=== PATIENT | male | born 1935 | race Caucasian/White ===

== ENCOUNTER 2017-07-02 14:43 | Outpatient (RCR) | payer MEDICARE, SELFPAY ==
[2017-07-02 14:56] LABS: Prothrombin Time Fingerstick 32.7 SEC (11.9-14.4)
== END 2017-07-02 15:00 | disposition home or self-care (01) ==
LOC: LAB 14:43
PROVIDERS: Family Provider Family Medicine; PCP Family Medicine; Visit Provider Internal Medicine Cardiovascular Disease
DX: I25.810 Atherosclerosis of coronary artery bypass graft(s) without angina pectoris (principal); I35.0 Nonrheumatic aortic (valve) stenosis; Z79.899 Other long term (current) drug therapy
CPT/HCPCS: 36416; 85610

== ENCOUNTER 2017-08-05 16:00 | Outpatient (RCR) | payer MEDICARE, SELFPAY ==
[2017-08-05 16:26] LABS: Prothrombin Time Fingerstick 23.6 SEC (11.9-14.4)
== END 2017-08-05 17:00 ==
LOC: LAB 16:00
PROVIDERS: Family Provider Family Medicine; PCP Family Medicine; Visit Provider Internal Medicine Cardiovascular Disease
DX: I42.9 Cardiomyopathy, unspecified (principal); Z79.01 Long term (current) use of anticoagulants
CPT/HCPCS: 36416; 85610

== ENCOUNTER 2017-09-02 14:56 | Outpatient (RCR) | payer MEDICARE, SELFPAY | END 2017-09-02 15:00 | disposition home or self-care (01) | LOC: LAB 14:56 | PROVIDERS: Family Provider Family Medicine; PCP Family Medicine; Visit Provider Internal Medicine Cardiovascular Disease | DX: I42.9 Cardiomyopathy, unspecified (principal); Z79.01 Long term (current) use of anticoagulants | CPT/HCPCS: 36416; 85610 ==

== ENCOUNTER 2017-09-30 14:38 | Outpatient (RCR) | payer MEDICARE, SELFPAY ==
[2017-09-30 14:56] LABS: Prothrombin Time Fingerstick 28.1 SEC (11.9-14.4)
== END 2017-09-30 15:00 | disposition home or self-care (01) ==
LOC: LAB 14:38
PROVIDERS: Family Provider Family Medicine; PCP Family Medicine; Visit Provider Internal Medicine Cardiovascular Disease
DX: I21.29 ST elevation (STEMI) myocardial infarction involving other sites (principal); Z79.01 Long term (current) use of anticoagulants
CPT/HCPCS: 36416; 85610

== ENCOUNTER 2017-10-29 08:04 | Outpatient (RCR) | payer MEDICARE, SELFPAY ==
[2017-10-29 09:16] LABS: AST(SGOT) 29 U/L (15-37); Alanine Aminotransfer ALT/SGPT 27 U/L (16-61); Albumin, Serum 3.5 g/dL (3.2-5.0); Alkaline Phosphatase 82 U/L (45-117); Cholesterol 146 mg/dL (200); Globulin 3.9 g/dL (2.2-4.2); High Density Lipoprotein 65 mg/dL; Protein, Total 7.4 g/dL (6.4-8.2); Triglycerides 114 mg/dL; Very Low Density Lipoprotein 23 mg/dL (5-40)
[2017-10-29 09:24] LABS: International Normalized Ratio 2.2; Prothrombin Time (Protime)PT. 24.9 SECONDS (11.7-14.9)
== END 2017-10-29 09:00 ==
LOC: LAB 08:04
PROVIDERS: Family Provider Family Medicine; PCP Family Medicine; Visit Provider Internal Medicine Cardiovascular Disease
DX: I42.9 Cardiomyopathy, unspecified (principal); I35.0 Nonrheumatic aortic (valve) stenosis; Z95.1 Presence of aortocoronary bypass graft; E78.5 Hyperlipidemia, unspecified; I10 Essential (primary) hypertension; Z79.01 Long term (current) use of anticoagulants; Z79.899 Other long term (current) drug therapy
CPT/HCPCS: 36415; 80061; 80076; 85610

== ENCOUNTER 2017-11-29 15:28 | Outpatient (RCR) | payer MEDICARE, SELFPAY ==
[2017-11-29 15:51] LABS: Prothrombin Time Fingerstick 18.4 SEC (11.9-14.4)
== END 2017-11-29 16:00 | disposition home or self-care (01) ==
LOC: LAB 15:28
PROVIDERS: Family Provider Family Medicine; PCP Family Medicine; Visit Provider Internal Medicine Cardiovascular Disease
DX: I42.9 Cardiomyopathy, unspecified (principal); Z79.01 Long term (current) use of anticoagulants
CPT/HCPCS: 36416; 85610

== ENCOUNTER 2018-01-27 15:24 | Outpatient (RCR) | payer MEDICARE, SELFPAY ==
[2018-01-06 15:46] LABS: Prothrombin Time Fingerstick 35.5 SEC (11.9-14.4)
== END 2018-01-27 17:00 | disposition home or self-care (01) ==
LOC: LAB 15:24
PROVIDERS: Family Provider Family Medicine; PCP Family Medicine; Visit Provider Internal Medicine Cardiovascular Disease
DX: I42.9 Cardiomyopathy, unspecified (principal); Z79.01 Long term (current) use of anticoagulants
CPT/HCPCS: 36416; 85610

== ENCOUNTER → 2018-02-11 14:27 | Outpatient (CLI) | payer MEDICARE, SELFPAY | PROVIDERS: Family Provider Family Medicine; PCP Family Medicine; Visit Provider Internal Medicine Cardiovascular Disease | DX: I35.0 Nonrheumatic aortic (valve) stenosis (principal); Z95.3 Presence of xenogenic heart valve | CPT/HCPCS: 93306 ==

== ENCOUNTER 2018-02-18 10:34 | Outpatient (RCR) | payer MEDICARE, SELFPAY ==
[2018-02-18 10:50] LABS: Prothrombin Time Fingerstick 32.6 SEC (11.9-14.4)
== END 2018-02-18 12:00 | disposition home or self-care (01) ==
LOC: LAB 10:34
PROVIDERS: Family Provider Family Medicine; PCP Family Medicine; Visit Provider Internal Medicine Cardiovascular Disease
DX: I42.9 Cardiomyopathy, unspecified (principal); Z79.01 Long term (current) use of anticoagulants
CPT/HCPCS: 36416; 85610

== ENCOUNTER 2018-03-20 14:50 | Outpatient (RCR) | payer MEDICARE, SELFPAY ==
[2018-03-11 13:21] LABS: Prothrombin Time Fingerstick 43.3 SEC (11.9-14.4)
[2018-03-18 15:26] LABS: Prothrombin Time Fingerstick 49.6 SEC (11.9-14.4)
[2018-03-18 15:53] LABS: Prothrombin Time (Protime)PT. 40.1 SECONDS (11.7-14.9)
[2018-03-18 15:56] LABS: International Normalized Ratio 4.1
[2018-03-20 15:46] LABS: International Normalized Ratio 3.4; Prothrombin Time (Protime)PT. 34.5 SECONDS (11.7-14.9)
[2018-03-20 16:06] LABS: Anion Gap 11 (5-15); BUN 18 mg/dL (7-18); BUN/Creat Ratio 15.3 RATIO (10-20); Calcium,Total 9.2 mg/dL (8.5-10.1); Chloride 102 mmol/L (98-107); Creatinine, Serum 1.18 mg/dL (0.70-1.30); EST Glomerular Filtration Rate 63 mL/min (>60); Est Glom Filt Rate - Afr Amer 76 mL/min (>60); Glucose 117 mg/dL (74-106); Potassium 4.2 mmol/L (3.5-5.1); Sodium Level 137 mmol/L (136-145)
== END 2018-03-20 16:00 | disposition home or self-care (01) ==
LOC: LAB 14:50
PROVIDERS: Family Provider Family Medicine; PCP Family Medicine; Visit Provider Internal Medicine Cardiovascular Disease
DX: I42.9 Cardiomyopathy, unspecified (principal); Z79.01 Long term (current) use of anticoagulants
CPT/HCPCS: 36415; 36416; 80048; 85610

== ENCOUNTER → 2018-07-03 16:15 | Outpatient (CLI) | payer MEDICARE, SELFPAY ==
[2018-02-05 13:39] VITALS: BMI 21.1
--- NOTE | 2018-07-03 16:18 | RAD_ITS ---
STUDY: X-RAY LEFT FOOT, GREAT TOE. REASON FOR EXAM: Male, 82 years old. Pain. TECHNIQUE: 3 view(s) of the toe were obtained. COMPARISON: None. FINDINGS: Normal visualized metatarsus. Normal metatarsophalangeal (M.T.P) joint. Normal interphalangeal joints. Normal phalanges and interphalangeal joints. The soft tissue structures are unremarkable. RAD/Toe(s) Min 2 Views IMPRESSION: Normal x-ray of the toe. Electronically Signed: Emeterio Patricio MD at 14:00 EST Tel [phone], Service support ,
[2018-07-03 17:57] LABS: Absolute Lymphocyte Count 1.47 X10^3/ul (0.83-4.51); Absolute Neutrophil Count 4.6 X10^3/uL (2.0-7.7); Basophil# 0.05 X10^3/uL; Basophil% 0.6 % (0-1); Eosinophil# 0.33 X10^3/uL; Eosinophils% 4.3 % (0-5); Hematocrit 46.6 % (40-54); Hemoglobin 15.1 g/dl (13.0-16.5); Lymphocyte # 1.47 X10^3/ul (4.0); Mean Corp Hgb Conc 32.4 g/gl (32-36); Mean Corpuscular Hgb 33.1 pg (27.0-32.0); Mean Corpuscular Volume 102.2 fL (80-94); Mean Platelet Vol. 9.6 fl (6.2-12.0); Monocyte# 1.25 X10^3/uL; Monocyte% 16.1 % (0-10); Neutrophil # 4.63 X10^3/uL (2.7-7.7); Neutrophil % 59.7 % (47-70); Platelet Count 206 K/mm3 (150-450); RBC Distribution Width CV 13.3 % (11.6-14.6); Red Blood Count 4.56 M/mm3 (4.6-6.2); White Blood Count 7.8 K/mm3 (4.4-11.0)
[2018-07-03 17:59] LABS: CRP 6.18 mg/L (0.0-3.0)
[2018-07-03 18:15] LABS: Erythrocyte Sedimentation Rate 11 mm/hr (0-20)
[2018-07-03 18:40] LABS: Differential Indicated SCAN CRITERIA MET; POSITIVE COUNT NO; POSITIVE DIFFERENTIAL NO; POSITIVE MORPHOLOGY YES; Platelet Estimate ADEQUATE (ADEQ); Red Cell Morphology NORM C+C NORMAL (NORM C&C)
== END ==
PROVIDERS: Family Provider Family Medicine; PCP Family Medicine; Referring Provider Family Medicine; Visit Provider Family Medicine
DX: I73.9 Peripheral vascular disease, unspecified (principal); M79.675 Pain in left toe(s)
CPT/HCPCS: 36415; 73660; 85025; 85652; 86140

== ENCOUNTER → 2018-07-14 13:45 | Outpatient (CLI) | payer MEDICARE, SELFPAY ==
--- NOTE | 2018-07-14 13:50 | ART_ITS ---
Reason For Study: Claudication Left Segmental Pressures Left brachial= 177mmHg. Left posterior tibial artery = 89mmHg. Left dorsalis pedis artery = 73mmHg. The left dorsalis pedis waveforms are monophasic. The left posterior tibial artery waveforms are monophasic. Right Segmental Pressures Right brachial= 184mmHg. Right posterior tibial artery = 119mmHg. Right dorsalis pedis artery = 141mmHg. The right dorsalis pedis waveforms are biphasic. The right posterior tibial artery waveforms are biphasic. Indices The right ankle brachial index by the dorsalis pedis is .77. The right ankle brachial index by the posterior tibial artery is .65. The left ankle brachial index by the dorsalis pedis is .40. The left ankle brachial index by the posterior tibial artery is .48. Interpretation Summary Biphasic waveforms are noted at ankle level on the right. Monophasic waveforms are noted at ankle level on the left. The right resting ankle-brachial index appears moderately abnormal. The left resting ankle-brachial index appears severely abnormal. 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 There is severe arterial occlusive disease on the left. Ordering Physician: Dain Villalobos Referring Physician: Dain Villalobos Performed By: Summer Mchugh T
== END ==
PROVIDERS: Family Provider Family Medicine; PCP Family Medicine; Referring Provider Family Medicine; Visit Provider Family Medicine
DX: I73.9 Peripheral vascular disease, unspecified (principal)
CPT/HCPCS: 93922

== ENCOUNTER 2018-11-14 10:53 | Inpatient (IN) | payer MEDICARE, SELFPAY ==
[2018-11-14] VITALS (14 sets, daily range): BP systolic 70–138; BP diastolic 34–99; PULSE 61–95; RESP 11–25; TEMP 36.3–36.7; O2SAT 92–100; BMI 21.4; BMI 20.1
--- NOTE | 2018-11-14 11:03 | EKG12_ITS ---
Test Reason : CP Blood Pressure : / mmHG Vent. Rate : 070 BPM Atrial Rate : 070 BPM P-R Int : 188 ms QRS Dur : 098 ms QT Int : 388 ms P-R-T Axes : 071 204 109 degrees QTc Int : 419 ms Normal sinus rhythm Right superior axis deviation Incomplete right bundle branch block ST & T wave abnormality, consider anterolateral ischemia Abnormal ECG Confirmed by SIMA HERNANDEZ, HINA ([id number]), material expeditor GARETT WHITE ([id number] on 11/17/2018 4:08:28 PM Referred By: Erasmo Serrano Confirmed By:HINA GAO MD
--- NOTE | 2018-11-14 11:03 | RAD_ITS ---
STUDY: X-RAY CHEST REASON FOR EXAM: Male, 83 years old. Sudden onset of mid sternal chest pain. TECHNIQUE: Single AP portable view of the chest. COMPARISON: None. FINDINGS: EKG electrodes are seen. Hyperinflation. Increased interstitial markings more prominent at the lung bases suggesting bibasilar scarring. There is no demonstrated pleural abnormality. Sternal cerclage wires and vascular clips are present from a prior sternotomy and coronary artery bypass graft procedure (CABG). Mitral valve replacement. Normal mediastinum and unique. There is prominence of the pulmonary hilar arteries without peripheral pulmonary vascular congestion, suggesting pulmonary hypertension. There is atherosclerotic calcification of the aortic arch with tortuosity. Normal visualized thoracic spine. Normal visualized ribs, clavicles, and shoulders. There is no demonstrated abnormality of the visualized soft tissue structures of the upper abdomen. RAD/Chest 1 View (Portable) IMPRESSION: Hyperinflation. Increased interstitial markings suggestive of bilateral basilar scarring. Electronically Signed: Emeterio Patricio, at 11:34 EDT , Service support ,
--- NOTE | 2018-11-14 11:06 | ED.VIS.GEN ---
History of Present Illness Chief Complaint: Chest Pain Informant: Patient, Significant Other Onset: Today Context: Sudden Onset Timing: Continuous Quality: Central chest discomfort with radiation Location: Chest, neck and both upper extremities Current Severity: Moderate Maximum Severity: Moderate Worsened by: Nothing Relieved by: Nothing Associated Symptoms: Radiation to both upper extremities, diaphoresis Narrative: Patient is an elderly male with multiple medical problems who presents with central chest discomfort with radiation to anterior neck bilaterally and both shoulders radiating down to his wrists with mild diaphoresis and slight nausea. Onset 30 minutes prior to presentation. Patient states his blood pressure is normally normal to elevated. He reports he does not feel well. He did take a baby aspirin prior to arrival. He is on Xarelto for mural thrombus according Dr. Read. Patient believed he was on Xarelto because of peripheral arterial disease. He is status post coronary bypass surgery and valve replacement 2003. He is not a good informant. was at bedside and supplemented. 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 Past Medical History - Allergies and Home Meds Allergies/Adverse Reactions: Allergies No Known Allergies Allergy (Unverified 11/14/18 11:08) Primary Care Physician: Masood Villalobos MD [Primary Care Provider] - Prior records reviewed: Yes Surgical History: coronary bypass surgery, - - Aortic valve replacement Lives: Spouse/ Significant Other Smoking Status: Former smoker Alcohol: None Review of Systems General: Denies: Chills, Fever, Sweats Eyes: Denies: Visual changes - bilaterally, Blurred Vision - bilaterally, Diplopia ENT: Denies: Bilateral ear pain, Rhinorrhea, Sore throat Cardiovascular: Reports: Chest pain. Denies: Palpitations, Heart racing Respiratory: Denies: Dyspnea, Cough, Dyspnea on exertion, Orthopnea, Paroxysmal nocturnal dyspnea Gastrointestinal: Denies: Abdominal pain, Vomiting, Diarrhea, Constipation, Melena, Hematochezia Musculoskeletal: Reports: Neck pain - Bilateral anterior neck pain. Denies: Myalgias, Arthralgias, Back pain, Extremity Pain Skin: Denies: Rash, Wounds Neurological: Denies: Headache, Weakness, Numbness Hematologic: Reports: Easy bruising Allergy: Denies: Uticaria Physical Exam Vital Signs/Narrative: Vital Signs Temp Pulse Resp BP Pulse Ox 11/14/18 10:54 98.1 F 68 11 L 99/34 L 97 Inital Vital Signs reviewed: Yes General: Well nourished, Well developed, Acute Distress Head: Normocephalic, Atraumatic Eyes: Perrl, EOMI. Negative for: Pale conjunctiva, Scleral icterus, - ENT: Moist mucous membranes, No rhinorrhea Neck: Supple, Nontender, No lymphadenopathy, No JVD Cardiovascular: Regular rate, Regular rhythm, No murmurs, Normal S1, Normal S2 Respiratory: No distress, CTA bilaterally, Chest nontender Abdomen: Soft, Nontender, Nondistended, Normal bowel sounds, No masses Rectal: Deferred Back: Nontender, Normal Inspection Extremities: Nontender, No edema, - - There is evidence of acrocyanosis with delayed capillary refill in his digits Skin: Normal color, No rash, Cyanosis - Acrocyanosis, No Trauma. Negative for: Jaundice Neurological: Alert, Oriented x3, Cranial nerves II-XII grossly intact, Normal Strength, Normal Sensation Psychological: Normal affect, Normal Mood Diagnostic/Tx/Re-eval Chest X-Ray - ED: 1 View, Read by ED Physician, Mediastinum, Bony Structures, No Acute Disease, Chronic Changes, - - Median sternotomy wires noted. Ring noted secondary to aortic valve replacement. No acute pulmonary process. There is no evidence of CHF or effusion. There is no infiltrate. There is no evidence of pneumothorax. Osseous structures are normal. Impressions Chest X-Ray 11/14/18 11:03 IMPRESSION: Hyperinflation. Increased interstitial markings suggestive of bilateral basilar scarring. Electronically Signed: Emeterio Patricio, at 11:34 EDT , Service support , 11/14/18 11:03 Chest 1 View (Portable) [RAD] Stat Laboratory Results 11/14/18 11/14/18 11:20 11:20 WBC 9.0 RBC 4.38 L Hgb 14.6 Hct 44.0 MCV 100.5 H MCH 33.3 H MCHC 33.2 RDW 13.5 RDW Differential 49.8 H Plt Count 172 MPV 9.5 Immature Gran % (Auto) 0.200 Neut % (Auto) 46.0 L Lymph % (Auto) 31.9 [place] % (Auto) 14.4 H Eos % (Auto) 6.9 H Baso % (Auto) 0.6 Absolute Neuts (auto) 4.2 Absolute Lymphs (auto) 2.88 Total Counted Not Reportable Sodium 133 L Potassium 4.6 Chloride 99 Carbon Dioxide 29.0 Anion Gap 5 BUN 17 Creatinine 1.54 H Estim Creat Clear Calc 33.95 Est GFR (MDRD) Af Amer 56 L Est GFR (MDRD) Non-Af 46 L BUN/Creatinine Ratio 11.0 Glucose 102 Calcium 8.8 Troponin I < 0.015 - Rhythm Strip Rhythm Strip: Sinus Rhythm Rate: 66 Ectopy: None - EKG Initial EKG Interpretation: Sinus Rhythm - Circular rate is 70. There are ischemic changes consistent with subendocardial infarction lateral leads. There is also changes noted in V2 and V3 which sick just a possible circumflex lesion. AR interval is normal. Cures duration is 98 ms. QT interval is normal. Computer is reading incomplete right bundle branch block. I am in disagreement. The lateral changes are new. Follow-up EKG Interpretation: Sinus Rhythm - Circular rate 67. There is evidence of anterolateral ischemia. This is unchanged from first EKG. Posterior EKG was obtained and reveals no evidence of acute posterior DC. Ventricular rate 72. AR interval normal. QS duration is 100 ms. QT interval is normal. [place] is to the right. - Medical Decision Making With patient plan of chest pain, hypotension, acrocyanosis and EKG changes concerning for DC Dr. Read who is patient's production staff worker contacted. Agrees with aspirin. Requested Brilinta. Requested to hold on anticoagulation. He or Dr. Serrano will be down to see patient and expedite disposition. Patient was ordered 500 cc bolus of normal saline for his hypotension. Dr. Serrano is at bedside and a stat cardio echocardiography is being performed. Patient was taken for emergent cardiac catheterization. Plan is to admit to ICU. - Critical Care Time Critical care time (excluding procedures): 30-74 minutes, Discussing w/Patient &/or Family/Courseware Developer, Discussing w/Consultants, Arranging Admission or Transfer ED Disposition - Plan for ED Patient: Disposition: Acute Care [facility] Diagnosis: Cardiogenic shock, Acute subendocardial DC of anterior wall Referrals: Masood Villalobos MD [Primary Care Provider] -
[2018-11-14] MEDS: TICAGRELOR 90 MG TABLET 180 MG PO (11:26)
--- NOTE | 2018-11-14 11:33 | EKG12_ITS ---
Test Reason : Blood Pressure : / mmHG Vent. Rate : 072 BPM Atrial Rate : 072 BPM P-R Int : 188 ms QRS Dur : 078 ms QT Int : 370 ms P-R-T Axes : 066 196 113 degrees QTc Int : 405 ms Right sided/posterior ECG Normal sinus rhythm Right superior axis deviation Abnormal ECG Confirmed by SIMA HERNANDEZ, HINA ([id number]), proposal editor GARETT WHITE ([id number]) on 11/17/2018 4:21:45 PM Referred By: Erasmo Serrano Confirmed By:HINA GAO MD
[2018-11-14 11:36] LABS: Absolute Lymphocyte Count 2.88 X10^3/ul (0.83-4.51); Absolute Neutrophil Count 4.2 X10^3/uL (2.0-7.7); Basophil# 0.05 X10^3/uL; Basophil% 0.6 % (0-1); Eosinophil# 0.62 X10^3/uL; Eosinophils% 6.9 % (0-5); Hemoglobin 14.6 g/dl (13.0-16.5); Lymphocyte # 2.88 X10^3/ul (4.0); Lymphocyte % 31.9 % (19-41); Mean Corp Hgb Conc 33.2 g/gl (32-36); Mean Corpuscular Hgb 33.3 pg (27.0-32.0); Mean Corpuscular Volume 100.5 fL (80-94); Mean Platelet Vol. 9.5 fl (6.2-12.0); Monocyte% 14.4 % (0-10); Neutrophil # 4.17 X10^3/uL (2.7-7.7); Platelet Count 172 K/mm3 (150-450); RBC Distribution Width CV 13.5 % (11.6-14.6); RBC Distribution Width SD 49.8 fl (35.1-43.9); Red Blood Count 4.38 M/mm3 (4.6-6.2)
[2018-11-14 11:37] LABS: POSITIVE COUNT NO; POSITIVE DIFFERENTIAL NO; POSITIVE MORPHOLOGY NO
[2018-11-14 11:48] LABS: Anion Gap 5 (5-15); BUN 17 mg/dL (7-18); Calcium,Total 8.8 mg/dL (8.5-10.1); Chloride 99 mmol/L (98-107); Creatinine, Serum 1.54 mg/dL (0.70-1.30); EST Glomerular Filtration Rate 46 mL/min (>60); Est Glom Filt Rate - Afr Amer 56 mL/min (>60); Estimated Creatinine Clearance 33.95 ml/min; Glucose 102 mg/dL (74-106); Potassium 4.6 mmol/L (3.5-5.1); Sodium Level 133 mmol/L (136-145)
--- NOTE | 2018-11-14 11:51 | ECHOL_ITS ---
Reason For Study: Unstable angina Procedure This was a limited 2D transthoracic echocardiogram. The study was technically difficult. Exam performed portable in ED. Left Ventricle Normal LV size. Segmental dysfunction with preserved ejection fraction (see wall motion). The estimated ejection fraction is 55 %. Mid-inferoseptal : Hypokinetic. Mid-anteroseptal : Hypokinetic. [place] : Akinetic. Right Ventricle Normal RV size. Normal systolic function. Mitral Valve There is mild mitral annular calcification. Anterior leaflet diffuse mitral valve thickening. Tricuspid Valve Normal tricuspid valve. Aortic Valve Stable appearing bioprosthetic aortic valve apparatus. Pulmonic Valve The pulmonic valve is not well visualized. Pericardium/Pleural No pericardial effusion. MMode/2D Measurements & Calculations LVIDd: 4.4 cm IVSd: 0.95 cm LA dimension(2D): 3.1 cm LVIDs: 2.4 cm LVPWd: 0.91 cm FS: 45.4 % Interpretation Summary The study was technically difficult. Segmental dysfunction with preserved ejection fraction (see wall motion). The estimated ejection fraction is 55 %. There is mild mitral annular calcification. Anterior leaflet diffuse mitral valve thickening. Stable appearing bioprosthetic aortic valve apparatus. Ordering Physician: Erasmo Serrano Referring Physician: Dain Villalobos MD Performed By: Delmy Chavarria RDKENNY
--- NOTE | 2018-11-14 11:51 | ED.RN ---
TO RN LICENSED PRACTICAL VIA CART-ESCORTED BY RN LICENSED PRACTICAL STAFF.
--- NOTE | 2018-11-14 11:57 | PCM.CONS.C ---
Problem List (1) Unstable angina Status: Acute Reason for Consult Date of Consultation: 11/14/18 History of Present Illness: The patient is a 83 year old M with past medical history significant for coronary artery disease status post coronary artery bypass graft surgery in 2003. He also has history of hypertension, dyslipidemia and peripheral arterial disease. Also has history of clots in the leg. Patient presented to the emergency room after developing anterior chest discomfort at home. According to him, it is a pressure sensation that radiates to the neck and bilateral shoulders. No associated nausea or vomiting. Denies any shortness of breath. His pain has been unremitting. In the emergency room, the patient was noted to be mildly hypotensive. Per patient, he is on oral anticoagulation for clots in the leg. His last dose of rivaroxaban was yesterday. [] Past Medical History Allergies/Adverse Reactions: Allergies No Known Allergies Allergy (Unverified 11/14/18 11:08) Home Medications: Ambulatory Orders Medication Instructions Recorded lisinopril 10 mg tablet 10 mg PO QDAY #90 tab 01/03/18 metoprolol tartrate 25 mg tablet 25 mg PO BID #180 tab 01/24/18 aspirin 81 mg tablet,delayed 81 mg PO QDAY 02/03/18 release atorvastatin 40 mg tablet 40 mg PO QDAY #90 tab 04/09/18 rivaroxaban 20 mg tablet 20 mg PO DAILY #90 tab 04/22/18 Past Medical History (Chronic Problems): Chronic Problems (Last Reviewed 02/05/18 @ 13:39 by Mikayla Steele) Nonrheumatic aortic (valve) stenosis (Chronic) Hypertension (Chronic) Hyperlipidemia (Chronic) Aortocoronary bypass status (Chronic ~03/2004) CABG x3- ANAYA to LAD, SVG to RPD, SVG to CFX 03/2004 Atherosclerotic heart disease of [place] coronary artery without angina pectoris (Chronic) 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 Denies: Fever, Chills HEENT: Denies: Head Aches, Sore Throat Cardiovascular: Reports: Chest Discomfort at Rest, Claudication. Denies: Shortness of Breath, Orthopnea, PND, Peripheral Edema, Palpitations, Near Syncope, Syncope Respiratory: Reports: Non Productive Cough - Per patient, he has been having dry cough for the last few months. Gastrointestinal: Denies: Heart Burn, Abdominal Discomfort, Jaundice, Nausea, Emesis, Hematemesis, Melena Neurological: Denies: History of TIA, History of CVA Hematologic/ Lymphatic: Reports: Easy Brusing Objective: Vital Signs Temp Pulse Resp BP Pulse Ox 98.1 F 68 11 L 99/34 L 98 11/14/18 10:54 11/14/18 10:54 11/14/18 11:51 11/14/18 11:51 11/14/18 11:03 Oxygen Delivery Method Room Air Weight: 63.8 kg Body Mass Index (BMI) 21.4 General: Awake, Alert, Oriented x 3, - - Mildly anxious HEENT: Atraumatic, Normocephalic Oral: Moist Mucosa Neck: Supple Lungs: - - Decreased air entry bilaterally. No crepitations or rhonchi Cardiovascular: Regular Rhythm - Distant heart sounds, Normal S1, Normal S2 Abdomen: Bowel Sounds Present - Hypertrophic toenails bilaterally. Dusky appearing bilateral feet., Soft Neurological: No Focal Motor or Sensory Deficit Psych/Mental Status: Appropriate 11/14/18 11:20: WBC 9.0, RBC 4.38 L, Hgb 14.6, Hct 44.0, MCV 100.5 H, MCH 33.3 H, MCHC 33.2, RDW 13.5, RDW Differential 49.8 H, Plt Count 172, MPV 9.5, Immature Gran % (Auto) 0.200, Neut % (Auto) 46.0 L, Lymph % (Auto) 31.9, [place] % (Auto) 14.4 H, Eos % (Auto) 6.9 H, Baso % (Auto) 0.6, Absolute Neuts (auto) 4.2, Total Counted Not Reportable 11/14/18 11:20: Sodium 133 L, Potassium 4.6, Chloride 99, Carbon Dioxide 29.0, Anion Gap 5, BUN 17, Creatinine 1.54 H, Est GFR (MDRD) Af Amer 56 L, Est GFR (MDRD) Non-Af 46 L, BUN/Creatinine Ratio 11.0, Glucose 102, Calcium 8.8, Troponin I < 0.015 Rhythm: Normal sinus rhythm EKG: EKG revealed normal sinus rhythm. ST depressions in V1 through V6. Posterior leads failed to show any definitive ST elevation. ST elevation in lead aVR ECHO: [place] is akinetic. Rest of the carlos showed normal motion. Please note that he has history of apical akinesis on echocardiogram. Stress Test: Cardiac Cath: PCI: CT Surgery: Holter monitor: EPS: PPM: CXR: Chest CT Scan: Assessment/Plan 1. Unstable angina/acute coronary syndrome. Patient continues to have chest discomfort. It is unremitting. Also blood pressure is borderline. Options were discussed with patient. Cardiac catheterization with coronary angiography and possible revascularization was offered. Risks benefits alternatives discussed. He understands and wishes to proceed. Particular emphasis was given to the risk of bleeding given that he took Xarelto about 24 hours ago. 2. History of coronary artery disease status post CABG. 3. History of hypertension. Presently blood pressure borderline. Will administer fluids. 4. History of severe peripheral arterial disease. 5. History of aortic valve disease status post aortic valve replacement with a bovine valve. ADDENDUM: Coronary angiography was performed. Please see cath report for complete details. The [place] LAD and RCA are totally occluded in the proximal part. The SVG graft to the RCA is widely patent. The vein graft to the obtuse marginal has about 50% lesion in its distal part. ANAYA to the LAD is patent. Possibly microvascular ischemia or occlusion of a small branch. We will maximize medical therapy.
--- NOTE | 2018-11-14 13:45 | EKG12_ITS ---
Test Reason : Blood Pressure : / mmHG Vent. Rate : 067 BPM Atrial Rate : 067 BPM P-R Int : 186 ms QRS Dur : 100 ms QT Int : 358 ms P-R-T Axes : 065 202 125 degrees QTc Int : 378 ms Normal sinus rhythm Right superior axis deviation Incomplete right bundle branch block Septal infarct , age undetermined ST & T wave abnormality, consider inferior ischemia ST & T wave abnormality, consider anterolateral ischemia Abnormal ECG Confirmed by SIMA HERNANDEZ, HINA ([id number]), digital editor GARETT WHITE ([id number]) on 11/17/2018 4:09:02 PM Referred By: Erasmo Serrano Confirmed By:HINA GAO MD
--- NOTE | 2018-11-14 13:54 | CRPHASE1 ---
Patient Communication PHII Cardiac Rehab Discussed with Patient:: No - Patient was a heart cath only and did not have an intervention. Guide to Cardiac Rehab Given to Patient:: No - Verified with Chani Damon in clinical lab technologist. Cardiac Rehab Facility Choice List Given to Patient:: No Risk Factors/Lifestyle Family History: Family History (Last Reviewed 02/05/18 @ 13:39 by Mikayla Steele) Father CAD (coronary artery disease) Myocardial infarction, Onset Age: 69 Mother CAD (coronary artery disease) Myocardial infarction, Onset Age: 69 Cardiac Rehabilitation Info Cardiac Rehabilitation Program Information: Cardiac Rehabilitation is important for patients like you who are recovering from a heart problem. Cardiac rehabilitation programs are recognized as integral to the continued care of the patient with coronary heart disease. The cardiac rehabilitation program is designed to optimize a patient's physical, psychological, and social functioning. Health medical care administrator work in cardiac rehabilitation programs and assist you with getting the treatments you need to get stronger and healthier - like exercise, healthy eating habits, and medications. Cardiac rehabilitation has been show to help people with heart problems live longer and have better life enjoyment than people who do not go to cardiac rehabilitation. Please contact the Cardiac Rehabilitation Program at [facility] at in two weeks if you have not heard from them.
[2018-11-14] MEDS: 0.9% Normal Saline 1,000 ML 150 ML IV (14:00)
--- NOTE | 2018-11-14 14:04 | EKG12_ITS ---
Test Reason : CP Blood Pressure : / mmHG Vent. Rate : 075 BPM Atrial Rate : 075 BPM P-R Int : 226 ms QRS Dur : 100 ms QT Int : 420 ms P-R-T Axes : 066 176 140 degrees QTc Int : 469 ms Sinus rhythm with marked sinus arrhythmia with 1st degree A-V block with junctional escape complexes Right ventricular hypertrophy Septal infarct , age undetermined ST & T wave abnormality, consider inferior ischemia ST & T wave abnormality, consider anterolateral ischemia Abnormal ECG Reconfirmed by MARISOL HERNANDEZ, MIKIE ([id number]), design editor GARETT WHITE ([id number]) on 11/18/2018 2:27:24 PM Referred By: Erasmo Serrano Confirmed By:MIKIE DAMON MD
--- NOTE | 2018-11-14 14:06 | CL.D_ITS ---
Patient Name: JERRY STONE Study Date: 11/14/2018 Performing: Erasmo Serrano MD Ht: 68 inches 172.72 cm : 1935 Wt: 131.99 lbs 59.87 kg Age: 83 Gender: male BSA: 1.71 PROCEDURE(S) PERFORMED BG57-RUP/COR/LV/CABG CLINICAL PROFILE AND INDICATIONS Heart Failure: None Angina Classification Anginal Classification w/in 2 Weeks: CCS IV CAD Presentations: Unstable angina. CONCLUSIONS ANAYA to LAD 50% Mid; 70% distal LAD SVG to OM 40% distal SVG to RPDA/RPLV patent [place] LAD, LCX, RCA 100% Prox. [place] Ramus severe diffuse disease RECOMMENDATIONS Medical therapy Follow up as per [place] DESCRIPTION OF PROCEDURE The patient arrived to the procedure lab. The risks and benefits of the procedure as well as a full d escription of our services here and current unavailability of surgical backup were fully explained to the patient and/or their significant other prior to the catheterization. The Timeout was completed, verifying the correct patient and procedure. The patient's procedural site was prepped and draped in the usual fashion. Local anesthetic was given subcutaneously to right radial region with Lidocaine 2% . Local anesthetic was given subcutaneously to left radial region with Lidocaine 2%. Using a modified Seldinger technique, arterial access was obtained via the right radial artery, a 6Fr sheath was inse rted., arterial access was obtained via the left radial artery, a 6Fr sheath was inserted. Left [place] nary Artery selective angiography was performed in multiple views using a 5 Fr. 4.0 [place] catheter. R ight Coronary Artery selective angiography was then performed in multiple views using a 5 Fr. 4.0 [place] catheter. Saphenous Vein graft to the RPDA selective angiography was performed in multi ple views using a 5 Fr. 4.0 [place] catheter. Saphenous Vein graft to the Circumflex selective angiogra phy was performed in multiple views using a 5 Fr. AL 1 catheter. Left internal mammary artery graft t o the LAD selective angiography was performed in multiple views using a 4 Fr. IM catheter. Left Coron eulogio Artery selective angiography was performed in multiple views using a 5 Fr. 4.0 [place] catheter.The arterial sheath was pulled and a TR Band was applied for hemostasis. The arterial sheath was pulled and a TR Band was applied for hemostasis CORONARY ANGIOGRAPHY DOMINANCE: Right Dominant LEFT HEART ASSESSMENT Left Ventricular Ejection Fraction: Not assessed LEFT MAIN: 50% distal LEFT ANTERIOR DESCENDING ARTERY: 100% prox. ANAYA to LAD 50% Mid. [place] LAD70% calcified lesion dista lly CIRCUMFLEX ARTERY: 100% prox. SVG to OM 50% distal RAMUS: Small, diffusely diseased RIGHT CORONARY ARTERY: 100% Prox GRAFTS: ANAYA graft to the LAD 50% Mid Saphenous Vein graft to the 1st OM 40-50% distal Saphenous Vein graft to the RPDA is patent. Filling PLV as well COMPLICATIONS No Complications PROCEDURE MEDICATIONS Oxygen: 2 L/min via nasal cannula Heparin 2000 unit(s) IV 11/14/2018 12:18:36 Zofran 4 mg IV 11/14/2018 13:01:38 SUMMARY OF HEMODYNAMIC DATA Time AIR REST ECG 12:10:35 AO 102/25 (50) SA 12:21:22 AO 93/20 (44) 12:26:43 Signed By Erasmo Serrano MD On 11/14/2018 2:05:24 PM Erasmo Serrano MD
--- NOTE | 2018-11-14 14:27 | PCM.HP.STD ---
Problem List (1) Unstable angina Status: Acute (2) Hyperlipidemia Status: Chronic Qualifiers: Hyperlipidemia type: unspecified Qualified Code(s): E78.5 - Hyperlipidemia, unspecified (3) Aortocoronary bypass status Status: Chronic Comment: CABG x3- ANAYA to LAD, SVG to RPD, SVG to CFX 03/2004 (4) Atherosclerotic heart disease of [place] coronary artery without angina pectoris Status: Chronic (5) Chronic CHF Status: Chronic (6) Essential hypertension Status: Chronic (7) PVD (peripheral vascular disease) Status: Chronic (8) History of aortic valve replacement with bioprosthetic valve Status: Chronic Comment: [place] 03/2004 History of Present Illness Date of Admission: 11/14/18 Chief Complaint: Chest pain. The patient is a 83 year old M with past medical history as mentioned above presented to the emergency room because of chest pain. His symptoms started this morning around 30 minutes before arrival to ER, with retrosternal chest pain, sharp pain, 7 out of 10 in severity, radiates to left side of his neck and left shoulder, associated with diaphoresis and mild nausea and without aggravating or relieving factors. He denied associated shortness of breath, dizziness or lightheadedness. Reportedly, he had one episode of vomiting after he had a cardiac catheterization. At this time, his chest pain improved significantly. Upon arrival to ER, patient was hypotensive, blood pressure was 99/34, was afebrile, heart rate stable and pulse ox was maintained on room air. His routine blood work was remarkable for sodium of 133, creatinine of 1.54 which is chronic. His EKG revealed normal sinus rhythm incomplete right bundle branch block, inverted T waves in leads V2, V3, V4, V5 and V6, ST segment depression in leads V4, V5 and V6 and those changes are new compared to his previous EKG from 2013. Chest x-ray revealed bilateral basilar scarring, no acute findings. He underwent emergent cardiac catheterization for unstable angina that revealed 50% distal stenosis of the left main coronary artery, 100% occlusion of the proximal LAD, ANAYA to LAD 50% mid stenosis, SVG to obtuse marginal is 40-50% distal stenosis, patent SVG to RPDA without evidence of acute coronary occlusion and no interventions was done. He is being admitted for unstable angina status post cardiac catheterization and borderline hypotension. 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) Chronic CHF (Chronic) Essential hypertension (Chronic) PVD (peripheral vascular disease) (Chronic) History of aortic valve replacement with bioprosthetic valve (Chronic ~03/2004) [place] 03/2004 Pubic ramus fracture (Chronic) Medical History: Medical History (Last Reviewed 02/05/18 @ 13:39 by Mikayla Steele) Nonrheumatic aortic (valve) stenosis (Chronic) I35.0 Hyperlipidemia (Chronic) E78.5 Atherosclerotic heart disease of [place] coronary artery without angina pectoris (Chronic) I25.10 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) R93.1 alf current use of anticoagulant (Chronic) Z79.01 Chronic CHF (Chronic) I50.9 Essential hypertension (Chronic) I10 PVD (peripheral vascular disease) (Chronic) I73.9 Pubic ramus fracture S32.599A Osteoarthritis M19.90 Allergies No Known Allergies Allergy (Unverified 11/14/18 11:08) Home Medications: Ambulatory Orders Medication Instructions Recorded lisinopril 10 mg tablet 10 mg PO QDAY #90 tab 01/03/18 metoprolol tartrate 25 mg tablet 25 mg PO BID #180 tab 01/24/18 aspirin 81 mg tablet,delayed 81 mg PO QDAY 02/03/18 release atorvastatin 40 mg tablet 40 mg PO QDAY #90 tab 04/09/18 rivaroxaban 20 mg tablet 20 mg PO DAILY #90 tab 04/22/18 Surgical History: Surgical History (Last Reviewed 02/05/18 @ 13:39 by Mikayla Steele) Aortocoronary bypass status (Chronic) Onset Date: ~03/2004 Z95.1 CABG x3- ANAYA to LAD, SVG to RPD, SVG to CFX 03/2004 History of aortic valve replacement with bioprosthetic valve (Chronic) Onset Date: ~03/2004 Z95.4 [place] 03/2004 History of angioplasty of peripheral vessel Z98.62 Bilat Common Iliac artery angioplasty and stent and Rt common femoral artery angioplasty 03/2013 Surgical History: coronary bypass surgery, - - Aortic valve replacement Lives: Spouse/ Significant Other Smoking Status: Former smoker Alcohol: None Drugs: None - *Family History Maternal Family History: Family History (Last Reviewed 02/05/18 @ 13:39 by Mikayla Steele) Father CAD (coronary artery disease) Myocardial infarction, Onset Age: 69 Mother CAD (coronary artery disease) Myocardial infarction, Onset Age: 69 History Items: No pertinent history Paternal Family History: Family History (Last Reviewed 02/05/18 @ 13:39 by Mikayla Steele) Father CAD (coronary artery disease) Myocardial infarction, Onset Age: 69 Mother CAD (coronary artery disease) Myocardial infarction, Onset Age: 69 History Items: No pertinent history Review of Systems Constitutional: Denies: Anorexia, Chills, Fever, Weakness Eyes: Denies: Blurred vision, Double vision, Drainage, Redness HEENT: Denies: Difficulty Hearing, Ear Pain, Eye Pain, Nasal bleeding, Nasal Congestion, Sore Throat Cardiovascular: Reports: Chest Pain, Light Headedness. Denies: Edema, Heaviness, Orthopnea, Palpitations, Paroxysmal Noc. Dyspnea, Syncope Respiratory: Denies: Cough, Hemoptysis, Pleuritic Pain, Shortness of Breath, Sputum production, Wheezing Gastrointestinal: Reports: Nausea, Vomiting. Denies: Abdominal Pain, Constipation, Diarrhea Genitourinary: Denies: Dysuria, Frequency, Hematuria Musculoskeletal: Denies: Arm Pain, Back Pain, Foot Pain Skin: Denies: Dryness, Rash Neurological: Denies: Balance problems, Double vision, Change in Speech, Slurred speech, Incoordination, Numbness, Tingling Psychiatric: Denies: Anxiety, Depression Endocrine: Denies: Change in Body Habitus, Polydipsia VTE Information - Inpt Only VTE Present on Admission: No VTE Mechan Device Prophylaxis: None VTE Pharm Prophylaxis ordered?: No - Physical Exam General: Alert, Oriented x3, Cooperative, No apparent distress HEENT: Atraumatic, PERRLA, EOMI, Normocephalic Oral: Moist Mucosa, No Gingival or Mucosal Lesions/ Ulcerations Neck: Supple, No JVD, Negative Carotid Bruits, Trachea Midline, Thyroid Normal Size and Texture Lungs: Clear to auscultation, No rhonchi, No wheeze, No rales, Diminished Cardiovascular: Regular rate, Regular Rhythm, Normal S1, Normal S2, PMI Normal Abdomen: Bowel Sounds Present, Soft, Non Tender, Non-Distended, No Hepato-splenomegaly Extremities: No clubbing, No cyanosis, No edema Skin: No rashes, No breakdown Lymphatic: No Cervical, Supraclavicular, or Inguinal Adenopathy Neurological: Cranial nerves II-XII grossly intact, Motor Exam 5/5 strength throughout Psych/Mental Status: Normal Affect, Appropriate, Alert and oriented to time, place, person, mood and affect Vital Signs Temp Pulse Resp BP Pulse Ox 98.1 F 68 11 L 99/34 L 98 11/14/18 10:54 11/14/18 10:54 11/14/18 11:51 11/14/18 11:51 11/14/18 11:03 Oxygen Delivery Method Room Air Weight: 132 lb Body Mass Index (BMI) 20.0 Laboratory Tests Past 24 Hrs 11/14/18 11/14/18 11:20 11:20 WBC 9.0 RBC 4.38 L Hgb 14.6 Hct 44.0 MCV 100.5 H MCH 33.3 H MCHC 33.2 RDW 13.5 RDW Differential 49.8 H Plt Count 172 MPV 9.5 Immature Gran % (Auto) 0.200 Neut % (Auto) 46.0 L Lymph % (Auto) 31.9 [place] % (Auto) 14.4 H Eos % (Auto) 6.9 H Baso % (Auto) 0.6 Absolute Neuts (auto) 4.2 Absolute Lymphs (auto) 2.88 Total Counted Not Reportable Sodium 133 L Potassium 4.6 Chloride 99 Carbon Dioxide 29.0 Anion Gap 5 BUN 17 Creatinine 1.54 H Estim Creat Clear Calc 33.95 Est GFR (MDRD) Af Amer 56 L Est GFR (MDRD) Non-Af 46 L BUN/Creatinine Ratio 11.0 Glucose 102 Calcium 8.8 Troponin I < 0.015 Clinical Impression(s) from Imaging Studies Chest X-Ray 11/14/18 11:03 IMPRESSION: Hyperinflation. Increased interstitial markings suggestive of bilateral basilar scarring. Electronically Signed: Emeterio Ptaricio, at 11:34 EDT , Service support , Assessment/Plan All Active Problems (Last Reviewed 02/05/18 @ 13:39 by Mikayla Steele) Unstable angina (Acute) This is an 83 years old male patient presented to the emergency room because of sudden onset chest pain, found to have EKG changes and borderline blood pressure, diagnosed with unstable angina and underwent emergent cardiac catheterization. #1 unstable angina: Status post cardiac catheterization, conclusion is possible microvascular ischemia or occlusion of a small branch, no interventions performed and plan to maximize medical therapy. EKG revealed T wave inversion in leads V2 through V6 and ST segment depression in leads V4, V5 and V6. Troponin is negative. Chest x-ray reviewed as above. Plan: Admit to ICU, complete bedrest, cardiac monitoring, serial cardiac enzymes, repeat EKG tomorrow morning, IV fluids, monitor blood pressure, continue aspirin and statins, continue Ranexa, cardiology already seen the patient. #2 hypotension: According to the patient, usual blood pressure is 120 systolic. We have been having difficulties assessing acute blood pressure. We cannot use both upper extremities because both were used for radial catheterization. One blood pressure was 191 systolic, other blood pressure was 89 systolic. Patient is asymptomatic, no dizziness or lightheadedness. Plan: IV fluid bolus, hold lisinopril and metoprolol. #3 CAD status post CABG: Plan as above, continue aspirin, statins and Ranexa, hold lisinopril and metoprolol. Reportedly, patient had a history of mural thrombus and that is why he is on Xarelto which will be continued. #4 hypertension: At this time, blood pressure is relatively low, patient is a symptomatic. Keep holding metoprolol and lisinopril, IV fluid bolus as above, close monitoring. #5 hyperlipidemia: Continue statins. #6 peripheral vascular disease: Status post stents, continue aspirin and statins. #7 status post aortic valve replacement with bioprosthetic valve: Stable, no acute issues. #8 renal insufficiency: Creatinine was around 1.4 to 1.6 mg/dL back in 2012. Most recent creatinine is from March, and it was 1.18. Admission creatinine is 1.54 which is up from the most recent creatinine. Plan for IV fluids, repeat BMP tomorrow morning. #9 DVT prophylaxis: Continue Xarelto. This note was generated with [employer] dictation software. It may contain incorrect words, spelling, and punctuation that were not noted in checking the note before signing. Code Visit Inpatient E&M: 77212 Init Hosp L3
--- NOTE | 2018-11-14 14:34 | HP.PCM_ITS ---
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 The patient is a 83 year old M with past medical history as mentioned above presented to the emergency room because of chest pain. His symptoms started this morning around 30 minutes before arrival to ER, with retrosternal chest pain, sharp pain, 7 out of 10 in severity, radiates to left side of his neck and left shoulder, associated with diaphoresis and mild nausea and without aggravating or relieving factors. He denied associated shortness of breath, dizziness or lightheadedness. Reportedly, he had one episode of vomiting after he had a cardiac catheterization. At this time, his chest pain improved significantly. Upon arrival to ER, patient was hypotensive, blood pressure was 99/34, was afebrile, heart rate stable and pulse ox was maintained on room air. His routine blood work was remarkable for sodium of 133, creatinine of 1.54 which is chronic. His EKG revealed normal sinus rhythm incomplete right bundle branch block, inverted T waves in leads V2, V3, V4, V5 and V6, ST segment depression in leads V4, V5 and V6 and those changes are new compared to his previous EKG from 2013. Chest x-ray revealed bilateral basilar scarring, no acute findings. He underwent emergent cardiac catheterization for unstable angina that revealed 50% distal stenosis of the left main coronary artery, 100% occlusion of the proximal LAD, ANAYA to LAD 50% mid stenosis, SVG to obtuse marginal is 40-50% distal stenosis, patent SVG to RPDA without evidence of acute coronary occlusion and no interventions was done. He is being admitted for unstable angina status post cardiac catheterization and borderline hypotension. 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) Chronic CHF (Chronic) Essential hypertension (Chronic) PVD (peripheral vascular disease) (Chronic) History of aortic valve replacement with bioprosthetic valve (Chronic ~03/2004) Blank-[place] 03/2004 Pubic ramus fracture (Chronic) Medical History: Medical History (Last Reviewed 02/05/18 @ 13:39 by Mikayla Steele) Nonrheumatic aortic (valve) stenosis (Chronic) I35.0 Hyperlipidemia (Chronic) E78.5 Atherosclerotic heart disease of robinson coronary artery without angina pectoris (Chronic) I25.10 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) R93.1 snf current use of anticoagulant (Chronic) Z79.01 Chronic CHF (Chronic) I50.9 Essential hypertension (Chronic) I10 PVD (peripheral vascular disease) (Chronic) I73.9 Pubic ramus fracture S32.599A Osteoarthritis M19.90 Allergies No Known Allergies Allergy (Unverified 11/14/18 11:08) Home Medications: Ambulatory Orders Medication Instructions Recorded lisinopril 10 mg tablet 10 mg PO QDAY #90 tab 01/03/18 metoprolol tartrate 25 mg tablet 25 mg PO BID #180 tab 01/24/18 aspirin 81 mg tablet,delayed 81 mg PO QDAY 02/03/18 release atorvastatin 40 mg tablet 40 mg PO QDAY #90 tab 04/09/18 rivaroxaban 20 mg tablet 20 mg PO DAILY #90 tab 04/22/18 Surgical History: Surgical History (Last Reviewed 02/05/18 @ 13:39 by Mikayla Steele) Aortocoronary bypass status (Chronic) Onset Date: ~03/2004 Z95.1 CABG x3- ANAYA to LAD, SVG to RPD, SVG to CFX 03/2004 History of aortic valve replacement with bioprosthetic valve (Chronic) Onset Date: ~03/2004 Z95.4 Blank-[place]man 03/2004 History of angioplasty of peripheral vessel Z98.62 Bilat Common Iliac artery angioplasty and stent and Rt common femoral artery angioplasty 03/2013 Surgical History: coronary bypass surgery, - - Aortic valve replacement Lives: Spouse/ Significant Other Smoking Status: Former smoker Alcohol: None Drugs: None - *Family History Maternal Family History: Family History (Last Reviewed 02/05/18 @ 13:39 by Mikayla Steele) Father CAD (coronary artery disease) Myocardial infarction, Onset Age: 69 Mother CAD (coronary artery disease) Myocardial infarction, Onset Age: 69 History Items: No pertinent history Paternal Family History: Family History (Last Reviewed 02/05/18 @ 13:39 by Mikayla Steele) Father CAD (coronary artery disease) Myocardial infarction, Onset Age: 69 Mother CAD (coronary artery disease) Myocardial infarction, Onset Age: 69 History Items: No pertinent history Review of Systems Constitutional: Denies: Anorexia, Chills, Fever, Weakness Eyes: Denies: Blurred vision, Double vision, Drainage, Redness HEENT: Denies: Difficulty Hearing, Ear Pain, Eye Pain, Nasal bleeding, Nasal Congestion, Sore Throat Cardiovascular: Reports: Chest Pain, Light Headedness. Denies: Edema, Heaviness, Orthopnea, Palpitations, Paroxysmal Noc. Dyspnea, Syncope Respiratory: Denies: Cough, Hemoptysis, Pleuritic Pain, Shortness of Breath, Sputum production, Wheezing Gastrointestinal: Reports: Nausea, Vomiting. Denies: Abdominal Pain, Constipation, Diarrhea Genitourinary: Denies: Dysuria, Frequency, Hematuria Musculoskeletal: Denies: Arm Pain, Back Pain, Foot Pain Skin: Denies: Dryness, Rash Neurological: Denies: Balance problems, Double vision, Change in Speech, Slurred speech, Incoordination, Numbness, Tingling Psychiatric: Denies: Anxiety, Depression Endocrine: Denies: Change in Body Habitus, Polydipsia VTE Information - Inpt Only VTE Present on Admission: No VTE Mechan Device Prophylaxis: None VTE Pharm Prophylaxis ordered?: No - Physical Exam General: Alert, Oriented x3, Cooperative, No apparent distress HEENT: Atraumatic, PERRLA, EOMI, Normocephalic Oral: Moist Mucosa, No Gingival or Mucosal Lesions/ Ulcerations Neck: Supple, No JVD, Negative Carotid Bruits, Trachea Midline, Thyroid Normal Size and Texture Lungs: Clear to auscultation, No rhonchi, No wheeze, No rales, Diminished Cardiovascular: Regular rate, Regular Rhythm, Normal S1, Normal S2, PMI Normal Abdomen: Bowel Sounds Present, Soft, Non Tender, Non-Distended, No Hepato- splenomegaly Extremities: No clubbing, No cyanosis, No edema Skin: No rashes, No breakdown Lymphatic: No Cervical, Supraclavicular, or Inguinal Adenopathy Neurological: Cranial nerves II-XII grossly intact, Motor Exam 5/5 strength throughout Psych/Mental Status: Normal Affect, Appropriate, Alert and oriented to time, place, person, mood and affect Vital Signs Temp Pulse Resp BP Pulse Ox 98.1 F 68 11 L 99/34 L 98 11/14/18 10:54 11/14/18 10:54 11/14/18 11:51 11/14/18 11:51 11/14/18 11:03 Oxygen Delivery Method Room Air Weight: 132 lb Body Mass Index (BMI) 20.0 Laboratory Tests Past 24 Hrs 11/14/18 11/14/18 11:20 11:20 WBC 9.0 RBC 4.38 L Hgb 14.6 Hct 44.0 MCV 100.5 H MCH 33.3 H MCHC 33.2 RDW 13.5 RDW Differential 49.8 H Plt Count 172 MPV 9.5 Immature Gran % (Auto) 0.200 Neut % (Auto) 46.0 L Lymph % (Auto) 31.9 [place] % (Auto) 14.4 H Eos % (Auto) 6.9 H Baso % (Auto) 0.6 Absolute Neuts (auto) 4.2 Absolute Lymphs (auto) 2.88 Total Counted Not Reportable Sodium 133 L Potassium 4.6 Chloride 99 Carbon Dioxide 29.0 Anion Gap 5 BUN 17 Creatinine 1.54 H Estim Creat Clear Calc 33.95 Est GFR (MDRD) Af Amer 56 L Est GFR (MDRD) Non-Af 46 L BUN/Creatinine Ratio 11.0 Glucose 102 Calcium 8.8 Troponin I < 0.015 Clinical Impression(s) from Imaging Studies Chest X-Ray 11/14/18 11:03 IMPRESSION: Hyperinflation. Increased interstitial markings suggestive of bilateral basilar scarring. Electronically Signed: Emeterio Patricio, at 11:34 EDT , Service support , Assessment/Plan All Active Problems (Last Reviewed 02/05/18 @ 13:39 by Mikayla Steele) Unstable angina (Acute) This is an 83 years old male patient presented to the emergency room because of sudden onset chest pain, found to have EKG changes and borderline blood pressure, diagnosed with unstable angina and underwent emergent cardiac catheterization. #1 unstable angina: Status post cardiac catheterization, conclusion is possible microvascular ischemia or occlusion of a small branch, no interventions performed and plan to maximize medical therapy. EKG revealed T wave inversion in leads V2 through V6 and ST segment depression in leads V4, V5 and V6. Troponin is negative. Chest x-ray reviewed as above. Plan: Admit to ICU, complete bedrest, cardiac monitoring, serial cardiac enzymes, repeat EKG tomorrow morning, IV fluids, monitor blood pressure, continue aspirin and statins, continue Ranexa, cardiology already seen the patient. #2 hypotension: According to the patient, usual blood pressure is 120 systolic. We have been having difficulties assessing acute blood pressure. We cannot use both upper extremities because both were used for radial catheterization. One blood pressure was 191 systolic, other blood pressure was 89 systolic. Patient is asymptomatic, no dizziness or lightheadedness. Plan: IV fluid bolus, hold lisinopril and metoprolol. #3 CAD status post CABG: Plan as above, continue aspirin, statins and Ranexa, hold lisinopril and metoprolol. Reportedly, patient had a history of mural thrombus and that is why he is on Xarelto which will be continued. #4 hypertension: At this time, blood pressure is relatively low, patient is a symptomatic. Keep holding metoprolol and lisinopril, IV fluid bolus as above, close monitoring. #5 hyperlipidemia: Continue statins. #6 peripheral vascular disease: Status post stents, continue aspirin and statins. #7 status post aortic valve replacement with bioprosthetic valve: Stable, no acute issues. #8 renal insufficiency: Creatinine was around 1.4 to 1.6 mg/dL back in 2012. Most recent creatinine is from March, and it was 1.18. Admission creatinine is 1.54 which is up from the most recent creatinine. Plan for IV fluids, repeat BMP tomorrow morning. #9 DVT prophylaxis: Continue Xarelto. This note was generated with [employer] dictation software. It may contain incorrect words, spelling, and punctuation that were not noted in checking the note before signing. Code Visit Inpatient E&M: 22204 Init Hosp L3
[2018-11-14 16:50] LABS: Bacteria 0 SEEN /hpf (None Seen); Mucous, Urine 0 SEEN /hpf (<or=2+); Red Blood Cells-Urine 0 SEEN /hpf (0-5); Squamous Epithelial Cells - UA 0 SEEN /hpf (0-5); White Blood Cells 0 SEEN /hpf (0-5)
[2018-11-14 16:59] LABS: Color, Urine Amber (Yellow); Glucose, Dipstick Normal (Normal); Ketone-Dipstick 5 mg/dl (Negative); Leukocyte Esterase-Dipstick 25 /ul (Negative); Nitrite-Dipstick Negative (Negative); Occult Blood-Urine Negative /ul (Negative); Protein-Dipstick 15 mg/dl (Negative); Urine Clarity Clear (Clear); Urine Urobilinogen 1 mg/dl (Normal)
[2018-11-14 17:00] LABS: Urine Bilirubin Dipstick 1 mg/dL (Negative)
--- NOTE | 2018-11-14 17:00 | NURSING ---
TR band removed from bilateral wrists. Dressing applied. No s/s hematoma.
[2018-11-14] MEDS: Acetaminophen 325 MG Tablet 650 MG PO (19:30)
--- NOTE | 2018-11-14 20:05 | NURSING ---
PT NOTED TO BE IN VTACH FOR APPROX 30 SEC ON MONITOR, THIS RN WENT TO PT'S ROOM IMMEDIATELY AND FOUND HIM IN PRONE POSITION. PT WAS UNRESPONSIVE THE MONITOR NOW DISPLAYED ASYSTOLE AND NO PULSE NOTED. THIS RN CALLED FOR CRASH CART, COMPRESSIONS WERE STARTED.
--- NOTE | 2018-11-14 20:49 | PCM.DEATH ---
Preliminary Cause of Probable aortic aneurysm rupture Date of Admission: 11/14/18 Date of : 11/14/18 - Principle Diagnosis Probable aortic aneurysm Problem List: NSTEMI Hypotension Hospital Course This is an 83-year-old male with a significant history of hypertension; hyperlipidemia; peripheral artery disease; CAD status post CABG who presented with chest pain and found to have mild hypotension; and NSTEMI with a troponin of 3.9. Patient received IV fluids and cardiac catheterization was done. Per cardiology note patient had a possible microvascular ischemia or occlusion of a small branch of coronary artery. Of note patient had occlusion of the peripheral vessels for which he has already had CABG. Coronary grafts were patent. No coronary intervention was indicated and the plan was to maximize medical therapy by continuing aspirin; statins; Ranexa; and holding lisinopril and metoprolol because of relatively low blood pressure. However on the night of admission patient was found to be unresponsive for which a CODE BLUE was called. ACLS with chest compressions and epinephrine was done. The code run for a total of 33 minutes for which patient oscillated between asystole; PE and a transient episodes where he had a palpable pulse. He finally lost his pulse and despite continuous CPR with a total of 9 rounds of 1 mg epinephrine the code was called off since patient had developed swelling of his abdomen and scrotum; and later swelling of his chest with crepitus. The exact course of is unclear at this point. However will assume probable abdominal aortic aneurysm rupture due to swelling of his abdomen and scrotum. Physical examination There were no heart sounds; or lung sounds. There were no bowel sounds. Patient had swelling of his chest with crepitus. Patient had swelling of his abdomen and scrotum. Pupils were dilated and unreactive. Patient was pronounced 203711/14/2018. Code Visit Inpatient E&M: 30498 Disch Hosp
--- NOTE | 2018-11-14 20:49 | PCM.PN.BLA ---
Progress Note CODE BLUE: Patient was noted to be unresponsive with no pulse or respiratory rate. ACLS with chest compression and ambu bagging was started at 2004 and ended 2037 with patient dying. During the course of the code patient moved from asytole to PEA and with transient episodes where pulse was palpated or could be found with a doppler. Eventually he lost his pulse again. All in all patient had 9 rounds of 1 mg of epinephrine. Patient was initially found to have swelling of his abdomen and scrotum and later swelling of his chest area with crepitus. Family was updated that patient has .
== END 2018-11-14 20:38 ==
LOC: ED 11:41 → ICU 14:26
PROVIDERS: Hospitalist; Admitting Provider Internal Medicine Cardiovascular Disease; Emergency Provider Emergency Medicine; Family Provider Family Medicine; PCP Family Medicine; Referring Provider Internal Medicine Cardiovascular Disease; Visit Provider Internal Medicine Cardiovascular Disease
DX: I21.4 Non-ST elevation (NSTEMI) myocardial infarction (principal); I71.3 Abdominal aortic aneurysm, ruptured; R57.0 Cardiogenic shock; E78.5 Hyperlipidemia, unspecified; I25.110 Atherosclerotic heart disease of native coronary artery with unstable angina pectoris; I25.710 Atherosclerosis of autologous vein coronary artery bypass graft(s) with unstable angina pectoris; I25.720 Atherosclerosis of autologous artery coronary artery bypass graft(s) with unstable angina pectoris; Z87.891 Personal history of nicotine dependence; Z95.1 Presence of aortocoronary bypass graft; Z95.3 Presence of xenogenic heart valve; I73.9 Peripheral vascular disease, unspecified; Z95.820 Peripheral vascular angioplasty status with implants and grafts; I50.9 Heart failure, unspecified; I11.0 Hypertensive heart disease with heart failure
CPT/HCPCS: 71045; 80048; 81001; 84484; 85025; 92950; 93005; 93308; 93459; 97802; 99285; J7030; J7040; Q9967; A4216; C1769; C1887; C1894; J2405